=== PATIENT | female | born 1945 | race Caucasian/White ===

== ENCOUNTER 2016-11-21 16:43 | Observation (INO) ==
--- NOTE | 2016-11-21 17:16 | Emergency Department Note ---
Disposition Clinical Impression: Acute exacerbation of chronic obstructive airways disease Disposition: Admitted As Inpatient Condition: Good Instructions: Chronic Obstructive Pulmonary Disease (ED) Reasons to Return/Additional Instructions: Blood pressure screening: When you had your blood pressure taken, if the top number was greater than 120 with a bottom number was greater than 80, I discussed and recommended that you call your primary care provider or a physician of your choice this week to arrange follow-up for further evaluation of your blood pressure. Elevated blood pressures which go untreated can lead to stroke, heart attack, kidney failure and other life-threatening diseases. This is a screening exam and recommendations are to follow with your Family Physician. ( We discussed reasons why the elevation could be occurring at this time. ) If you have had an EKG and/or x-ray performed in the emergency department, it will be reviewed by the pharmacy teacher and/or radiologist. If the review changes your diagnosis or treatment you will be contacted at the phone number you provided. Prescribed outpatient testing: Please call to schedule an appointment for the test that was ordered on the form provided. If you been prescribed an antibiotic: Take it as instructed until itis all finished. If you cannot tolerate that medication for some reason, call your physician for a replacement. If he had a specimen collected for a culture, a culture report takes 48-72 hours to generate. You will be contacted if a change in treatment is needed. Return if your condition worsens or if you have severe pain, fever, vomiting or difficulty breathing. If you received or were prescribed a medication that may cause drowsiness ( Tramadol, Phenergan, Trazodone, Diazepam, Lorazepam, Hydroxyzine, Xanax, Hydrocodone, Oxycodone, Codeine, or any other medication) DO NOT drive or drink alcohol, or operate machinery that requires you to be alert for at least 8 hours after taking that medication. If you smoke or chew tobacco products: discuss with your family physician options to help in the cessation in the use of tobacco products. If you to find a physician: Go to [email or web address] or call: [facility], [facility] [phone] [facility], You may have multiple scripts and some may have been electronically sent . If you are give a printed script please also take this in when filling the scripts. A diagnosis may require multiple medications to treat and all are important in your healthcare issues. Referrals: Calin Boone, DO [Primary Care Provider] - Forms: ED Satisfaction Letter Time of Disposition: 20:23 (beatrice obsv) SOB HPI - General Chief Complaint: ED Shortness of Breath/Dyspnea Stated Complaint: sob/cough Source: patient, EMS Mode of arrival: EMS Limitations: no limitations Nursing Notes Reviewed: Yes Vital Signs Reviewed: Yes - History of Present Illness About a month ago she was seen and treated his [facility] For couple of days for acute mucopurulent bronchitis pneumonia has been seen by her family physician couple times since then continues to have left lower chest wall pain worse with respiration worse with movement but now is bringing up thick green phlegm choking on it and almost making her gag she denies any blurred vision double vision states that she is dyspneic with any type of activity and health states it was really bad today was barely able to get out move even tried to do the dishes as a result she is here for evaluation Pt Subjective Complaint: shortness of breath Onset (ago): month(s) Context: recent illness Severity: moderate Consistency/Duration: intermittent, gradually worsening Improves with: oxygen, bronchodilators Worsens with: exertion Known history of: COPD, congestive heart failure Associated symptoms: Reports: pain with inspiration, cough, wheezing, sputum production. Denies: chest pain, fever, orthopnea, lower extremity pain, polyuria, polydipsia, parasthesias, palpitations, hemoptysis, diaphoresis, nausea/vomiting, syncope, abdominal pain, rash, sense of impending doom Treatment prior to arrival: oxygen, bronchodilator Cough present: Yes Cough Description: Involuntary, Productive, Strong, Bronchospastic Cough Frequency: Intermittent Sputum production: Yes Sputum Amount: Moderate Sputum Color: Yellow, Green - Related Data Home Medications Medication Instructions Recorded Confirmed Albuterol Sulfate [Proair Hfa] 1 puff IH 4-6XD PRN 09/26/15 11/21/16 Fluticasone Propionate Nasal 50 mcg NS DAILY 09/26/15 11/21/16 [Flonase] Fluticasone/Salmeterol [Advair 1 each IH DAILY 09/26/15 11/21/16 500-50 Diskus] Insulin Glargine,Hum.rec.anlog 26 unit SQ HS 09/26/15 11/21/16 [Lantus Solostar] Nateglinide [Starlix] 120 mg PO TID 09/26/15 11/21/16 Roflumilast [Daliresp] 500 mcg PO DAILY 09/26/15 11/21/16 Ropinirole HCl [Requip] 3 mg PO DAILY 09/26/15 11/21/16 Sertraline [Zoloft] 150 mg PO DAILY 09/26/15 11/21/16 Solifenacin Succinate [Vesicare] 10 mg PO DAILY 09/26/15 11/21/16 Sucralfate [Carafate] 1 gm PO BID 09/26/15 11/21/16 Aspirin [Lo-Dose Aspirin EC] 81 mg PO QAM 05/07/16 11/21/16 Cilostazol 50 mg PO HS 05/07/16 11/21/16 ClonazePAM [Klonopin] 0.5 mg PO BID 05/07/16 11/21/16 Hydrochlorothiazide [Microzide] 12.5 mg PO QAM 05/07/16 11/21/16 Morphine Sulfate [Ranjana] 15 mg PO DAILY PRN 05/07/16 11/21/16 Morphine Sulfate [Ranjana] 30 mg PO BID 05/07/16 11/21/16 Multivit, Ca, Min/FA/Soy Isofl 1 each PO QAM 05/07/16 11/21/16 [One-A-Day Menopause Formula Tb] Nitroglycerin [Nitrostat] 0.4 mg SL PRN PRN 05/07/16 11/21/16 Simvastatin [Zocor] 20 mg PO HS 05/07/16 11/21/16 Cholecalciferol (D-3) [Vitamin D] 3,000 unit PO DAILY 07/18/16 11/21/16 Ticagrelor [Brilinta] 90 mg PO BID 07/18/16 11/21/16 Ipratropium/Albuterol Neb [Duoneb] 3 ml IH Q4HR 10/15/16 11/21/16 Levothyroxine [Synthroid] 200 mcg PO 0630 10/15/16 11/21/16 Previous Rx's Medication Instructions Recorded Lactobacillus [Culturelle] 1 each PO BID #6 cap.sprink 09/29/15 PredniSONE 10 mg PO BIDWM #6 tablet 09/29/15 PredniSONE 40 mg PO DAILY #10 tablet 10/15/16 Allergies Allergy/AdvReac Type Severity Reaction Status Date / Time mold AdvReac Difficulty Verified 09/05/15 14:15 Breathing All systems ED: reviewed and negative except as stated. Constitutional: Denies: fever, chills Eyes: Denies: eye pain ENT ED: Denies: throat pain Cardiovascular: Reports: chest pain (With inspiration) Respiratory: Reports: cough, dyspnea, wheezes, sputum production Gastrointestinal: Denies: abdominal pain, nausea Genitourinary: Denies: urgency, dysuria Musculoskeletal: Denies: neck pain Integumentary: Denies: abrasion Neurological: Denies: headache Psychiatric: Denies: depression Endocrine: Denies: heat or cold intolerance Hematological/Lymphatic: Denies: easy bleeding Allergic/Immunologic: Denies: facial swelling Past Medical History - Past Medical History Attestation: Yes The following information was validated with the patient. Source: patient, old records reviewed, nursing notes reviewed Medical history: Reports: asthma, COPD, coronary artery disease, CVA, diabetes, GERD, hyperlipidemia, hypertension, peripheral artery disease, thyroid disease Surgical history: Reports: angioplasty/stent Psychiatric history: Reports: no psych history - Social History Smoking Status: Former smoker Smokeless Tobacco Status: No Alcohol use: Reports: none Drug use: Reports: none Physical Exam - General Limitations: no limitations General appearance: alert, in no apparent distress, anxious - Head Head exam: atraumatic, normocephalic, normal inspection - Eye Eye exam: Present: normal appearance, PERRL, EOMI - ENT ENT exam: normal exam, normal oropharynx, mucous membranes moist, TM's normal bilaterally, normal external ear exam - Neck Neck exam: Present: normal inspection, full ROM, trachea midline - Chest Chest inspection: Present: normal inspection, symmetric chest wall rise - Respiratory Respiratory exam: Present: wheezes, prolonged expiratory phase - Cardiovascular Cardiovascular exam: Present: regular rate, normal rhythm, normal heart sounds - Abdominal Exam Abdominal exam: Present: soft, Non-Tender, normal bowel sounds. Absent: mass, pulsatile mass - Extremities Exam Extremities exam: Present: normal inspection, full ROM, normal capillary refill. Absent: tenderness, joint swelling - Expanded Lower Extremity Exam Neurovascular/Tendon exam: Present: normal capillary refill, normal fine/light touch Gait: observed and normal - Back Exam Back exam: Present: normal inspection, full ROM. Absent: muscle spasm - Neurological Exam Neurological exam: Present: alert, oriented X3, CN II-XII intact, normal gait - Psychiatric Psychiatric exam: Present: normal affect, normal mood - Skin Skin exam: Present: warm, dry, intact, normal color Course Course Narrative: A short was seen and examined he just finished a breathing treatment per EMS was bringing up copious amounts of green thick tenacious phlegm as a result patient was given IV antibiotics admitted transferred to [facility] stable Vital Signs Temperature 98.5 F 11/21/16 16:46 Pulse Rate 94 11/21/16 16:46 Respiratory Rate 23 11/21/16 16:46 Blood Pressure 134/77 11/21/16 16:46 O2 Sat by Pulse Oximetry 96 11/21/16 16:46 Temperature 98.5 F 11/21/16 19:00 Pulse Rate 72 11/21/16 20:10 Respiratory Rate 18 11/21/16 20:10 Blood Pressure 130/68 11/21/16 20:10 O2 Sat by Pulse Oximetry 96 11/21/16 20:10 Oxygen Delivery Oxygen Delivery Room Air Shortness of Breath/Dyspnea - Differential Diagnosis Likely: acute exacerbation of chronic obstructive airways disease, pneumonia - Medical Records Medical records reviewed: Yes I reviewed the patient's medical records. - Lab Data Lab results reviewed: Yes I reviewed the patient's lab results. Result diagrams: 11/21/16 17:25 11/21/16 17:25 Lab Results 11/21/16 11/21/16 11/21/16 Range/Units 17:25 17:25 17:25 WBC 9.2 (4.3-11.1) K/mcL RBC 4.27 (3.82-4.97) M/mcL Hgb 12.1 (11.5-15.4) g/dL Hct 38.7 (35.3-44.9) % MCV 90.6 (83.0-100.0) fL MCH 28.3 (28.0-33.3) pg MCHC 31.3 L (31.6-35.5) g/dL RDW 15.3 H (11.5-14.5) % Plt Count 261 (140-400) K/mcL MPV 9.9 (9.4-12.4) fL Immature Gran % 0.3 (0-4) % Seg Neutrophils % 68.5 % Lymphocytes % 20.8 % Monocytes % 6.4 % Eosinophils % 3.2 % Basophils % 0.8 % Neutrophils # 6.3 (1.6-8.9) K/mcL Lymphocytes # 1.9 (0.6-4.6) K/mcL Monocytes # 0.6 (0.0-1.3) K/mcL Eosinophils # 0.3 (0.0-0.6) K/mcL Basophils # 0.1 (0.0-0.2) K/mcL PT 11.4 (9.4-12.1) Seconds INR 1.1 APTT 34.4 (26.0-36.0) Seconds Sodium 142 (136-145) mEq/L Potassium 4.6 H (3.5-4.5) mEq/L Chloride 102 (98-109) mEq/L Carbon Dioxide 27 (19-29) mEq/L BUN 14 (7-20) mg/dL Creatinine 0.76 (0.57-1.11) mg/dL Est GFR ( Amer) > 60 (> 60) Est GFR (Non-Af Amer) > 60 (> 60) BUN/Creatinine Ratio 18 (6-26) Glucose 102 H (70-99) mg/dL Calculated Osmolality 295 (280-300) Calcium 9.5 (8.6-10.8) mg/dL Troponin I (0-0.03) ng/mL 11/21/16 Range/Units 17:25 WBC (4.3-11.1) K/mcL RBC (3.82-4.97) M/mcL Hgb (11.5-15.4) g/dL Hct (35.3-44.9) % MCV (83.0-100.0) fL MCH (28.0-33.3) pg MCHC (31.6-35.5) g/dL RDW (11.5-14.5) % Plt Count (140-400) K/mcL MPV (9.4-12.4) fL Immature Gran % (0-4) % Seg Neutrophils % % Lymphocytes % % Monocytes % % Eosinophils % % Basophils % % Neutrophils # (1.6-8.9) K/mcL Lymphocytes # (0.6-4.6) K/mcL Monocytes # (0.0-1.3) K/mcL Eosinophils # (0.0-0.6) K/mcL Basophils # (0.0-0.2) K/mcL PT (9.4-12.1) Seconds INR APTT (26.0-36.0) Seconds Sodium (136-145) mEq/L Potassium (3.5-4.5) mEq/L Chloride (98-109) mEq/L Carbon Dioxide (19-29) mEq/L BUN (7-20) mg/dL Creatinine (0.57-1.11) mg/dL Est GFR ( Amer) (> 60) Est GFR (Non-Af Amer) (> 60) BUN/Creatinine Ratio (6-26) Glucose (70-99) mg/dL Calculated Osmolality (280-300) Calcium (8.6-10.8) mg/dL Troponin I 0.01 (0-0.03) ng/mL - Radiology Data Radiology results reviewed: Yes I reviewed the patient's radiology results. ITS Impressions Chest X-Ray 11/21/16 17:32 IMPRESSION: No acute cardiopulmonary disease. D/ / 11/21/2016 19:50:03 Ermias Lr MD / kirstin Interpreting Provider: Ermias Lr MD - EKG Data EKG attestation: Yes I reviewed and interpreted this EKG. EKG results narrative: This rhythm rate 94 TN 136 QRS 87 QT 330 for access 60 Critical Care Time Critical Care Time: No
[2016-11-21 17:38] LABS: Basophils # 0.1 K/mcL (0.0-0.2); Basophils % 0.8 %; Eosinophils # 0.3 K/mcL (0.0-0.6); Eosinophils % 3.2 %; Hematocrit 38.7 % (35.3-44.9); Hemoglobin 12.1 g/dL (11.5-15.4); Immature Granulocytes % 0.3 % (0-4); Lymphocytes # 1.9 K/mcL (0.6-4.6); Lymphocytes % 20.8 %; Mean Corpuscular HGB Conc 31.3 g/dL (31.6-35.5); Mean Corpuscular Hemoglobin 28.3 pg (28.0-33.3); Mean Corpuscular Volume 90.6 fL (83.0-100.0); Mean Platelet Volume 9.9 fL (9.4-12.4); Monocytes # 0.6 K/mcL (0.0-1.3); Monocytes % 6.4 %; Neutrophils # 6.3 K/mcL (1.6-8.9); Platelet Count 261 K/mcL (140-400); Red Blood Count 4.27 M/mcL (3.82-4.97); Red Cell Distribution Width 15.3 % (11.5-14.5); Segmented Neutrophils % 68.5 %
[2016-11-21 17:40] LABS: INR 1.1; Prothrombin Time 11.4 Seconds (9.4-12.1)
[2016-11-21 17:43] LABS: Activated Partial Thrombo Time 34.4 Seconds (26.0-36.0)
[2016-11-21 18:23] LABS: BUN/Creatinine Ratio 18 (6-26); Blood Urea Nitrogen 14 mg/dL (7-20); Calcium 9.5 mg/dL (8.6-10.8); Carbon Dioxide 27 mEq/L (19-29); Chloride 102 mEq/L (98-109); Glucose 102 mg/dL (70-99); Osmolality,Calculated 295 (280-300); Potassium 4.6 mEq/L (3.5-4.5); Sodium 142 mEq/L (136-145); eGFR For African Americans > 60 (> 60); eGFR For Non-African Americans > 60 (> 60)
[2016-11-21] MEDS ORDERED: *HR* Morphine Immed Rel 30 MG TABLET PO STA (18:55)
[2016-11-21] MEDS ORDERED: *HR* Morphine 2 MG/ML SYRINGE IVP ONE (19:16)
[2016-11-21] MEDS ORDERED: 0.9 % Sodium Chloride 1,000 ML IVC SCH (22:03)
[2016-11-21] MEDS ORDERED: *HR* Morphine Sulfate SR (12 HR) 15 MG TABLET.ER PO PRN (22:03)
[2016-11-21] MEDS ORDERED: Ondansetron ODT 4 MG TAB.RAPDIS SL PRN (22:03)
[2016-11-21] MEDS ORDERED: *HR* Dextrose 50 % in Water (Syg) 50 ML SYRINGE IVP PRN (22:03)
[2016-11-21] MEDS ORDERED: Nitroglycerin 0.4 MG TAB.SUBL SL PRN (22:03)
[2016-11-21] MEDS ORDERED: Dextrose Gel 15 GM PO PRN ×2 (22:03)
[2016-11-21] MEDS ORDERED: Albuterol 2.5 MG/3 ML NEBULIZER IH PRN (22:03)
[2016-11-21] MEDS ORDERED: Insulin DETEMIR 100 UNIT/ML per UNIT SQ SCH (22:03)
[2016-11-21] MEDS ORDERED: Naloxone 0.4 MG/ML INJ IVP PRN (22:03)
[2016-11-21] MEDS ORDERED: D5% in Water 1,000 ML IVC PRN (22:03)
[2016-11-21] MEDS: Ipratropium/Albuterol Neb 3 ML IH SCH (22:15)
[2016-11-21] MEDS ORDERED: Insulin DETEMIR 100 UNIT/ML per UNIT SQ ONE (22:30)
[2016-11-22] MEDS: *HR* Ticagrelor 90 MG TABLET PO SCH ×2 (00:04→08:36)
[2016-11-22] MEDS: Sucralfate 1 GM TABLET PO SCH ×2 (00:04→08:36)
[2016-11-22] MEDS: Lactobacillus 1 EACH CAP.SPRINK PO SCH ×2 (00:05→08:36)
[2016-11-22] MEDS: ClonazePAM 0.5 MG TABLET PO SCH ×2 (00:05→08:24)
[2016-11-22] MEDS: *HR* Nateglinide 120 MG TABLET PO SCH ×2 (00:05→08:37)
[2016-11-22] MEDS: *HR* Morphine Sulfate SR (12 HR) 30 MG TABLET.ER PO SCH ×2 (00:07→08:37)
[2016-11-22] MEDS: Ipratropium/Albuterol Neb 3 ML IH SCH ×2 (05:09→10:35)
[2016-11-22 06:46] LABS: Basophils % 0.5 %; Hemoglobin 10.6 g/dL (11.5-15.4); Immature Granulocytes % 0.5 % (0-4); Lymphocytes # 0.5 K/mcL (0.6-4.6); Lymphocytes % 9.7 %; Mean Corpuscular HGB Conc 31.2 g/dL (31.6-35.5); Mean Corpuscular Hemoglobin 28.1 pg (28.0-33.3); Mean Corpuscular Volume 90.2 fL (83.0-100.0); Mean Platelet Volume 9.8 fL (9.4-12.4); Monocytes # 0.1 K/mcL (0.0-1.3); Monocytes % 0.9 %; Neutrophils # 4.9 K/mcL (1.6-8.9); Platelet Count 222 K/mcL (140-400); Red Blood Count 3.77 M/mcL (3.82-4.97); Segmented Neutrophils % 88.4 %
[2016-11-22 06:56] LABS: INR 1.1; Prothrombin Time 11.6 Seconds (9.4-12.1)
[2016-11-22 06:59] LABS: Activated Partial Thrombo Time 32.8 Seconds (26.0-36.0)
[2016-11-22 07:03] LABS: BUN/Creatinine Ratio 20 (6-26); Blood Urea Nitrogen 15 mg/dL (7-20); Calcium 8.7 mg/dL (8.6-10.8); Carbon Dioxide 28 mEq/L (19-29); Chloride 103 mEq/L (98-109); Glucose 198 mg/dL (70-99); Osmolality,Calculated 298 (280-300); Potassium 4.4 mEq/L (3.5-4.5); Sodium 141 mEq/L (136-145); eGFR For African Americans > 60 (> 60); eGFR For Non-African Americans > 60 (> 60)
[2016-11-22] MEDS: Insulin LISPRO 300 UNITS/3 ML VIAL SQ SCH ×2 (08:35→13:07)
[2016-11-22] MEDS ORDERED: Cholecalciferol (D-3) 1,000 UNIT TABLET PO SCH (09:00)
[2016-11-22] MEDS ORDERED: (Roflumilast [Daliresp] 500 MCG) PO SCH (09:00)
[2016-11-22] MEDS ORDERED: Fluticasone Propionate Nasal 50 MCG/SPRAY BOTTLE NS SCH (09:00)
[2016-11-22] MEDS ORDERED: Aspirin Enteric Coated 81 MG Tablet PO SCH (09:00)
[2016-11-22] MEDS ORDERED: Levofloxacin 500 MG/100 ML 500 MG/100 ML BAG IVPB SCH (09:00)
[2016-11-22] MEDS ORDERED: Multivit/Ca/Min/Fe/FA 1 TAB TABLET PO SCH (09:00)
[2016-11-22] MEDS ORDERED: Budesonide/Formoterol 160/4.5 MDI IH SCH (10:00)
[2016-11-22 11:24] VITALS: BP 112/53
--- NOTE | 2016-11-22 14:36 | Internal Med History&Physical ---
Date of Encounter: 11/22/16 Time of Encounter: 12:15 Assessment and Plan (1) Abdominal pain Current visit: Yes Status: Acute Etiology is not obvious. Abdominal CT report from [facility] will be obtained. Further workup will be done as needed. Qualifiers: Abdominal location: left upper quadrant Qualified Code(s): R10.12 - Left upper quadrant pain (2) Acute exacerbation of chronic obstructive airways disease Current visit: Yes Status: Acute Suspect bronchitis. Will treat symptomatically. Will not give antibiotics since it is likely viral origin. Internal Medicine - H&P: HPI Chief complaint: cough, abdominal pain Admitted From: Home Plans for Post Hospital Care: Home History of present illness: Ms. Cox is a 71 year old female who came to the emergency room stating she had cough with productivity of green and yellow sputum for several days. She had ongoing discomfort in her left upper abdominal area that had been present for 6 months but increasing in frequency over the past few weeks. She was evaluated in emergency room andfelt to have exacerbation of COPD and was admitted to [facility] floor for ongoing care needs. She reports being hospitalized at [facility] approximately 3 weeks ago for the discomfort in her chest. No etiology for the discomfort was found. She had what sounds to be chest CTA and also had abdominal/pelvic CT scan. She states she had a fall on 10/20/2016 landing on her gluteal area. She reports the abdominal pain began after the fall. She reports she did sustain a lower vertebral fracture. T Her respiratory history is significant for having smoked from age [age] up to 3 packs per day. She had PFTs 09/05/2015 which showed severe COPD. Shw wears oxygen at home 28/02. Past Med Surg Social Fam HX - Past Medical History Medical history: asthma, COPD, coronary artery disease, CVA, diabetes, GERD, hyperlipidemia, hypertension, peripheral artery disease, thyroid disease Psychiatric history: no psych history - Past Surgical History Surgical History: angioplasty/stent - Social History Smoking Status: Former smoker Smokeless Tobacco Status: No Alcohol use: none Drug use: none Internal Medicine - H&P: Meds Albuterol Sulfate [Proair Hfa] 1 puff IH 4-6XD PRN 09/26/15 [History] Fluticasone Propionate Nasal [Flonase] 50 mcg NS DAILY 09/26/15 [History] Fluticasone/Salmeterol [Advair 500-50 Diskus] 1 each IH DAILY 09/26/15 [History] Insulin Glargine,Hum.rec.anlog [Lantus Solostar] 26 unit SQ HS 09/26/15 [History ] Nateglinide [Starlix] 120 mg PO TID 09/26/15 [History] Roflumilast [Daliresp] 500 mcg PO DAILY 09/26/15 [History] Ropinirole HCl [Requip] 3 mg PO DAILY 09/26/15 [History] Sertraline [Zoloft] 150 mg PO DAILY 09/26/15 [History] Solifenacin Succinate [Vesicare] 10 mg PO DAILY 09/26/15 [History] Sucralfate [Carafate] 1 gm PO BID 09/26/15 [History] Lactobacillus [Culturelle] 1 each PO BID #6 cap.sprink 09/29/15 [Rx] PredniSONE 10 mg PO BIDWM #6 tablet 09/29/15 [Rx] Aspirin [Lo-Dose Aspirin EC] 81 mg PO QAM 05/07/16 [History] Cilostazol 50 mg PO HS 05/07/16 [History] ClonazePAM [Klonopin] 0.5 mg PO BID 05/07/16 [History] Hydrochlorothiazide [Microzide] 12.5 mg PO QAM 05/07/16 [History] Morphine Sulfate [Ranjana] 15 mg PO DAILY PRN 05/07/16 [History] Morphine Sulfate [Ranjana] 30 mg PO BID 05/07/16 [History] Multivit, Ca, Min/FA/Soy Isofl [One-A-Day Menopause Formula Tb] 1 each PO QAM [History] Nitroglycerin [Nitrostat] 0.4 mg SL PRN PRN 05/07/16 [History] Simvastatin [Zocor] 20 mg PO HS 05/07/16 [History] Cholecalciferol (D-3) [Vitamin D] 3,000 unit PO DAILY 07/18/16 [History] Ticagrelor [Brilinta] 90 mg PO BID 07/18/16 [History] Ipratropium/Albuterol Neb [Duoneb] 3 ml IH Q4HR 10/15/16 [History] Levothyroxine [Synthroid] 200 mcg PO 0630 10/15/16 [History] PredniSONE 40 mg PO DAILY #10 tablet 10/15/16 [Rx] Allergies mold Adverse Reaction (Verified 09/05/15 14:15) Difficulty Breathing All Systems PM: A 10-system review of systems was performed and is negative for pertinent findings except as documented above in the HPI. Review of systems: Gen.: Her weight has decreased approximately 20 pounds in the past 3 months, unintentional Cardiovascular: She has a history of hypertension. She has known ASHD and had 2 stents placed in 2003, another stent placed in 2012, and another stent May 2016.. She had an exercise stress test approximately September 2015 but does not know the result. She has not had DVT or pulmonary embolus or known heart failure. She has had a loop recorder placed for "irregular rhythm" but does not know further details. She has ASPVD and has had stents placed in her legs. She reports a right carotid artery stent was placed May 2016. Respiratory: As per history of present illness GI: She has had cholecystectomy. 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 She denies disorders of her exocrine pancreas : She has history of hematuria. She has been diagnosed with overactive bladder and chronic kidney disease. 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 Neurologic: She has RLS but denies seizures. She states she had a stroke May 2016 leaving her with mild speech impairment. Endocrine: She was diagnosed with DM 2 in 2007. She has hypothyroidism and hyperlipidemia. Hematology/oncology: She has had anemia in the past but that is resolved. She denies internal malignancies or other blood disorders Psychiatric: She has history of anxiety and depression. Musk skeletal: She has DJD and has had right shoulder pain which has required several injections - Constitutional Vitals: Temp Pulse Resp BP Pulse Ox 98.6 F 85 18 112/53 95 11/22/16 11:18 11/22/16 11:18 11/22/16 11:18 11/22/16 11:18 11/22/16 11:18 Exam: Gen.: She is a well-developed well-nourished female who appears in mild distress at the present time HEENT: Head is atraumatic and normocephalic. Eyes: EOMI. There is no scleral icterus. Mouth: Mucosa is moist. Neck: Supple and nontender. There is no thyromegaly or adenopathy noted. Heart: Regular without murmurs gallops or ectopics. Lungs: No wheezes or crackles heard. Abdomen: Soft and nontender. No masses or guarding are noted. She is nontender in her lower anterior ribs to palpation or compression Extremities: There is no cyanosis edema or clubbing noted. Dorsalis pedis and posttibial pulses are 1-2 over 2 bilaterally. Neurologic: No status: She is talkative and a good historian. Cranial nerves: Smile is symmetric. Forehead wrinkles bilaterally. Tongue protrudes midline. EOMI. Motor: There is no pronator drift. Cerebellar: Finger to nose is intact bilaterally. Skin: Warm and dry Internal Med - H&P Results - Labs CBC & Chem 7: 11/22/16 06:10 11/22/16 06:10 Labs: Short CBC 11/22/16 Range/Units 06:10 WBC 5.6 (4.3-11.1) K/mcL Hgb 10.6 L D (11.5-15.4) g/dL Hct 34.0 L (35.3-44.9) % Plt Count 222 (140-400) K/mcL Neutrophils # 4.9 (1.6-8.9) K/mcL BMP 11/22/16 06:10 Sodium 141 Potassium 4.4 Chloride 103 Carbon Dioxide 28 BUN 15 Creatinine 0.76 Glucose 198 H Calcium 8.7
--- NOTE | 2016-11-22 15:11 | Discharge Summary ---
Date of Encounter: 11/22/16 Time of Encounter: 14:20 - Discharge Diagnosis (1) Abdominal pain Priority: Primary Status: Acute Qualifiers: Abdominal location: left upper quadrant Qualified Code(s): R10.12 - Left upper quadrant pain (2) Acute exacerbation of chronic obstructive airways disease Priority: Secondary Status: Acute - Discharge Medications Home Medications: Albuterol Sulfate [Proair Hfa] 1 puff IH 4-6XD PRN 09/26/15 [History] Fluticasone Propionate Nasal [Flonase] 50 mcg NS DAILY 09/26/15 [History] Fluticasone/Salmeterol [Advair 500-50 Diskus] 1 each IH DAILY 09/26/15 [History] Insulin Glargine,Hum.rec.anlog [Lantus Solostar] 26 unit SQ HS 09/26/15 [History ] Nateglinide [Starlix] 120 mg PO TID 09/26/15 [History] Roflumilast [Daliresp] 500 mcg PO DAILY 09/26/15 [History] Ropinirole HCl [Requip] 3 mg PO DAILY 09/26/15 [History] Sertraline [Zoloft] 150 mg PO DAILY 09/26/15 [History] Solifenacin Succinate [Vesicare] 10 mg PO DAILY 09/26/15 [History] Sucralfate [Carafate] 1 gm PO BID 09/26/15 [History] Lactobacillus [Culturelle] 1 each PO BID #6 cap.sprink 09/29/15 [Rx] PredniSONE 10 mg PO BIDWM #6 tablet 09/29/15 [Rx] Aspirin [Lo-Dose Aspirin EC] 81 mg PO QAM 05/07/16 [History] Cilostazol 50 mg PO HS 05/07/16 [History] ClonazePAM [Klonopin] 0.5 mg PO BID 05/07/16 [History] Hydrochlorothiazide [Microzide] 12.5 mg PO QAM 05/07/16 [History] Morphine Sulfate [Ranjana] 15 mg PO DAILY PRN 05/07/16 [History] Morphine Sulfate [Ranjana] 30 mg PO BID 05/07/16 [History] Multivit, Ca, Min/FA/Soy Isofl [One-A-Day Menopause Formula Tb] 1 each PO QAM [History] Nitroglycerin [Nitrostat] 0.4 mg SL PRN PRN 05/07/16 [History] Simvastatin [Zocor] 20 mg PO HS 05/07/16 [History] Cholecalciferol (D-3) [Vitamin D] 3,000 unit PO DAILY 07/18/16 [History] Ticagrelor [Brilinta] 90 mg PO BID 07/18/16 [History] Ipratropium/Albuterol Neb [Duoneb] 3 ml IH Q4HR 10/15/16 [History] Levothyroxine [Synthroid] 200 mcg PO 0630 10/15/16 [History] PredniSONE 40 mg PO DAILY #10 tablet 10/15/16 [Rx] Allergies/Adverse Reactions: Allergies mold Adverse Reaction (Verified 09/05/15 14:15) Difficulty Breathing Date of admission: 11/21/16 20:55 Primary care physician: Calin Boone DO - Patient Status Disposition: Home, Self-Care Condition: Good Overall status at discharge: patient is progressing back to baseline - Discharge Instructions Follow Up With: Calin Boone DO [Primary Care Provider] - 1 week - Diet and Activity Activity: resume usual activities as tolerated Diet: advance to your usual diet Hospital course: Ms. Cox is a 71 year old female who came to the emergency room stating she had cough with productivity of green and yellow sputum for several days. She had ongoing discomfort in her left upper abdominal area that had been present for 6 months but increasing in frequency over the past few weeks. She was evaluated in emergency room andfelt to have exacerbation of COPD and was admitted to [facility] floor for ongoing care needs. Initial orders were written by the emergency room physician. I saw her on November 22 and performed a history physical and discharge. The etiology of her abdominal pain was not determined with certainty. Results from her recent [facility] abdominal/pelvic CT were obtained and reviewed. When I saw her she stated she felt stable but was still having some discomfort in her low back on movement and some abdominal discomfort. Her breathing appeared back to baseline. I felt she was stable for discharge home. She reported she was scheduled to see Dr. Arteaga for further GI workup in a few days. Recommended she follow up with her PCP Dr. Boone within 1 week. - Time Spent with Patient Total time spent providing and/or coordinating discharge services: - Constitutional Vitals: Temp Pulse Resp BP Pulse Ox 98.6 F 85 18 112/53 95 11/22/16 11:18 11/22/16 11:18 11/22/16 11:18 11/22/16 11:18 11/22/16 11:18
[2016-11-22] MEDS ORDERED: Insulin LISPRO 300 UNITS/3 ML VIAL SQ SCH (21:00)
[2016-11-22] MEDS ORDERED: Insulin DETEMIR 100 UNIT/ML X5UNITS SQ SCH (21:00)
--- NOTE | 2016-11-23 06:25 | Electrocardiograph Report ---
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
== END 2016-11-22 15:35 | disposition home or self-care (01) ==
LOC: EMEROOPIK 16:43 → INPPIK 16:43
PROVIDERS: ADMIT Internal Medicine; ATTEND Internal Medicine